=== PATIENT | male | born 1940 | race Caucasian/White ===

== ENCOUNTER → 2018-09-02 06:45 | Outpatient (CLI) | payer MEDICARE, SELFPAY ==
--- NOTE | 2018-09-02 10:27 | NEURO ---
NCS and/or EMG Patient Report Ordering Doctor: Addy Ventura DATE OF SERVICE: 09/02/18 Is a bilateral upper extremity nerve conduction study in the left upper extremity EMG performed on this 78-year-old male with 6 months of burning and numbness in the first 4 digits of his left hand. A wrist splint at night has helped improve his symptoms to some degree. He has a history of diabetes with a most recent hemoglobin A1c of 7.3. Bilateral upper extremity sensory and motor nerve conduction studies performed. The bilateral median motor and sensory distal latencies are abnormal with the left side being worse. The left median sensory response is not obtainable. The bilateral conduction velocities are slowed, worse on the left side. The ulnar motor and sensory and radial sensory responses are normal however there is also a slowed conduction velocity of the left ulnar nerve across the elbow. The bilateral median and bilateral ulnar F-wave latencies are prolonged. Left upper extremity needle electromyography is performed. Muscles evaluated included the first dorsal osseous, abductor pollicis brevis, brachioradialis, biceps, triceps and deltoid muscles. Median nerve innervated muscles including the abductor pollicis brevis muscle demonstrated large motor units with early recruitment and 1+ fibrillation potentials. All other muscles demonstrated normal insertional activity with absence of pathologic spontaneous activity. Motor unit potential recruitment pattern and amplitude was otherwise normal. Impression: 1. Carpal tunnel syndrome bilaterally, severe on the left, moderate on the right. 2. Left ulnar neuropathy. 3. Mild polyneuropathy.
== END ==
PROVIDERS: Family Provider Family Medicine; PCP Family Medicine; Referring Provider Family Medicine; Visit Provider Family Medicine
DX: M79.601 Pain in right arm (principal); M79.602 Pain in left arm; M79.2 Neuralgia and neuritis, unspecified
CPT/HCPCS: 95886; 95911